=== PATIENT | male | born 1975 | race Caucasian/White ===

== ENCOUNTER 2017-06-23 09:13 | Emergency (ER) | payer MEDICAID ==
[~2017-06-23] VITALS: Ht 193 cm; Wt 102.0 kg
[2017-06-23] MEDS ORDERED: KETOROLAC 30 MG/1 ML ONE (09:36)
[2017-06-23] MEDS ORDERED: KETOROLAC 30 MG/1 ML IM ONE (10:00)
[2017-06-23 10:08] VITALS: BP 130/84
== END 2017-06-23 10:17 | disposition home or self-care (01) ==
LOC: EDBD 09:13 → ED 09:45
DX: M25.511 Pain in right shoulder (principal); G89.29 Other chronic pain; M75.31 Calcific tendinitis of right shoulder; E11.9 Type 2 diabetes mellitus without complications
CPT/HCPCS: 73030; 96372; 99284; J1885